=== PATIENT | male | born 1940 | race Caucasian/White ===

== ENCOUNTER 2016-08-15 20:29 | Observation (INO) | payer OTHER ==
[~2016-08-15] VITALS: Ht 152.4 cm; Wt 82.0 kg
[2016-08-15] MEDS ORDERED: CEFTRIAXONE 1 GM/50 ML (PMX) 50 ML IVPB STA (21:40)
[2016-08-15] MEDS ORDERED: ALBUTEROL 0.083% (NEB) 2.5 MG/3 ML AMP HHN STA (21:40)
[2016-08-15] MEDS ORDERED: AZITHROMYCIN 500MG/NS (PMX) 250 ML IV STA (21:40)
[2016-08-15] MEDS ORDERED: SODIUM CHLORIDE 0.9% 1L BAG IV* STA (21:40)
[2016-08-15 21:49] LABS: ADD SCAN DIFF NO
[2016-08-15 21:51] LABS: BASOPHILS % 0.2 % (0.0-2.0); HEMATOCRIT 41.5 % (42.0-52.0); HEMOGLOBIN 13.9 g/dl (14.0-18.0); LYMPHOCYTES % 6.9 % (15.0-51.0); MEAN CORPUSCULAR HEMOGLOBIN 30.7 pg (29.0-33.0); MEAN CORPUSCULAR HGB CONC 33.5 g/dl (32.0-37.0); MEAN CORPUSCULAR VOLUME 91.6 fl (82.0-101.0); MEAN PLATELET VOLUME 11.3 fl (7.4-10.4); MONOCYTE # 1.2 10^3/ul (0.3-0.9); MONOCYTES % 7.6 % (0.0-11.0); NEUTROPHIL # 12.7 10^3/ul (1.6-7.5); NEUTROPHILS % 84.2 % (39.0-77.0); PLATELET COUNT 207 10^3/UL (140-415); RED BLOOD COUNT 4.53 10^6/ul (4.70-6.10); RED CELL DISTRIBUTION WIDTH 13.4 % (11.5-14.5); WHITE BLOOD COUNT 15.1 10^3/ul (4.8-10.8)
[2016-08-15 21:55] LABS: INR 1.09; PROTIME 14.1 Sec (12.2-14.2); PT RATIO 1.1
[2016-08-15 21:56] LABS: PARTIAL THROMBOPLASTIN TIME 37.1 Sec (25.0-35.0)
[2016-08-15 21:58] LABS: ALBUMIN 3.8 g/dl (3.3-4.9); ALBUMIN/GLOBULIN RATIO 0.95; BILIRUBIN,INDIRECT 1.1 mg/dl (0-1.1); BILIRUBIN,TOTAL 1.1 mg/dl (0.2-1.3); CREATININE 1.01 mg/dl (0.61-1.24); POTASSIUM 4.1 mmol/L (3.5-5.1); TOTAL PROTEIN 7.8 g/dl (6.1-8.1)
[2016-08-15] MEDS ORDERED: IBUPROFEN 200 MG TAB PO ONE (22:00)
[2016-08-15 22:09] LABS: TROPONIN-I 0.075 ng/ml (0.00-0.12)
--- NOTE | 2016-08-15 22:31 | RADRPT ---
PROCEDURE: XR Chest. CLINICAL INDICATION: Sepsis. Cough. TECHNIQUE: Single frontal view. COMPARISON: None. FINDINGS: The lungs are clear. The heart size is normal. There is no pleural effusion. There is no pneumothorax. IMPRESSION: 1. Normal chest radiograph. RPTAT: QQ .Lucho Minaya MD, Date Time Electronically viewed and signed by .Lucho Minaya MD, on 08/15/2016 22:31 .R/
[2016-08-15] MEDS ORDERED: DEXAMETHASONE 10 MG/ML 1 ML INJ IV STA (22:35)
[2016-08-15] MEDS ORDERED: IPRATROPIUM (NEB) 0.5 MG/2.5 ML AMP NEB STA (22:35)
[2016-08-15] MEDS ORDERED: ALBUTEROL 0.083% (NEB) 2.5 MG/3 ML AMP NEB STA (22:35)
--- NOTE | 2016-08-15 23:16 | ERD ---
ER Documentation Chief Complaint Date/Time DATE: 08/15/16 TIME: 23:11 Chief Complaint fever/chest congestion x 1 week HPI 76-year-old male with a history of hyperlipidemia and hypertension presenting to the ER with 1 week of cough with yellow sputum. He has associated shortness of breath and chest discomfort when he coughs. For the past few days he has also had an associated fever. He denies any nausea, vomiting, abdominal pain, diarrhea. He has had intermittent associated headaches with dizziness. He has poor p.o. intake per his family. He also complains of urinary retention which is been going on for the past 2 years. ROS All systems reviewed and are negative except as per history of present illness. Medications Home Meds No Active Prescriptions or Reported Meds Allergies Allergies: Coded Allergies: No Known Allergy (Unverified , 08/15/16) PMhx/Soc Medical and Surgical Hx: pt denies Surgical Hx Hx Cardiac Disorders: Yes (Hypertension) Hx Miscellaneous Medical Probl: Yes (Hyperlipidemia) Hx Alcohol Use: No Hx Substance Use: No Hx Tobacco Use: No Smoking Status: Never smoker FmHx Family History: No diabetes Physical Exam Vitals Vital Signs Date Time Temp Pulse Resp B/P Pulse Ox O2 Delivery O2 Flow Rate FiO2 08/15/16 23:55 98.2 106 91 Room Air 08/15/16 22:52 97 2.0 28 08/15/16 22:50 107 20 97 Nasal Cannula 2.0 28 08/15/16 21:55 Nasal Cannula 2 08/15/16 21:54 92 22 98 Nasal Cannula 2.0 28 08/15/16 21:26 102.3 08/15/16 20:39 102.0 115 20 114/62 90 Physical Exam Const: Physically appearing, nontoxic, no distress Head: Atraumatic Eyes: Normal Conjunctiva ENT: Normal External Ears, Nose and Mouth. Neck: Full range of motion..~ No meningismus. Resp: Diminished breath sounds bilaterally with expiratory wheezing. No rales or rhonchi Cardio: Regular rate and rhythm, no murmurs. 2+ distal pulses, equal bilaterally Abd: Soft, non tender, non distended. Normal bowel sounds Skin: No petechiae or rashes Back: No midline or flank tenderness Ext: No cyanosis, or edema Neur: Awake and alert and oriented 3, cranial nerves intact, strength and sensation is intact in all 4 extremities Psych: Normal Mood and Affect Result Diagram: 08/15/16212108/15/162121 Results 24 hrs Laboratory Tests Test 08/15/16 21:22 08/15/16 23:40 08/16/16 00:01 08/16/16 00:09 White Blood Count 15.110^3/ul Red Blood Count 4.5310^6/ul Hemoglobin 13.9g/dl Hematocrit 41.5% Mean Corpuscular Volume 91.6fl Mean Corpuscular Hemoglobin 30.7pg Mean Corpuscular Hemoglobin Concent 33.5g/dl Red Cell Distribution Width 13.4% Platelet Count 45588^3/UL Mean Platelet Volume 11.3fl Neutrophils % 84.2% Lymphocytes % 6.9% Monocytes % 7.6% Eosinophils % 0.0% Basophils % 0.2% Nucleated Red Blood Cells % 0.0/100WBC Neutrophils # 12.710^3/ul Lymphocytes # 1.010^3/ul Monocytes # 1.210^3/ul Eosinophils # 0.010^3/ul Basophils # 0.010^3/ul Nucleated Red Blood Cells # 0.010^3/ul Prothrombin Time 14.1Sec Prothrombin Time Ratio 1.1 INR International Normalized Ratio 1.09 Activated Partial Thromboplast Time 37.1Sec Sodium Level 139mmol/L Potassium Level 4.1mmol/L Chloride Level 102mmol/L Carbon Dioxide Level 30mmol/L Anion Gap 11 Blood Urea Nitrogen 13mg/dl Creatinine 1.01mg/dl Glucose Level 138mg/dl Lactic Acid Level 1.4mmol/L 1.3mmol/L Calcium Level 9.0mg/dl Total Bilirubin 1.1mg/dl Direct Bilirubin 0.00mg/dl Indirect Bilirubin 1.1mg/dl Aspartate Amino Transf (AST/SGOT) 31IU/L Alanine Aminotransferase (ALT/SGPT) 36IU/L Alkaline Phosphatase 89IU/L Troponin I 0.075ng/ml Total Protein 7.8g/dl Albumin 3.8g/dl Globulin 4.00g/dl Albumin/Globulin Ratio 0.95 Urine Color YELLOW Urine Clarity CLEAR Urine pH 6.0 Urine Specific [place] >=1.030 Urine Ketones TRACE Urine Nitrite NEGATIVE Urine Bilirubin NEGATIVE Urine Urobilinogen 2.0 E.U./dL Urine Leukocyte Esterase NEGATIVE Urine Microscopic RBC 0-2/HPF Urine Microscopic WBC 0-2/HPF Urine Squamous Epithelial Cells FEW Urine Bacteria OCCASIONAL Urine Hemoglobin 1+ Urine Glucose NEGATIVE% Urine Total Protein 2+ Bedside Urine pH (LAB) 6.0 Bedside Urine Protein (LAB) 2+ Bedside Urine Glucose (UA) Negative Bedside Urine Ketones (LAB) Trace Bedside Urine Blood Trace-lysed Bedside Urine Nitrite (LAB) Negative Bedside Urine Leukocyte Esterase (L Negative Test 08/16/16 00:29 Blood Gas Specimen Source Blood arterial Arterial Blood Date Drawn 08/16/2016 12:30:48 AM Arterial Blood pH (Temp corrected) 7.377 Arterial Blood pCO2 (Temp correct) 40.3mmhg Arterial Blood pO2 (Temp corrected) 64.2mmHG Arterial Blood HCO3 23.1mmol/L Arterial Blood Base Excess -1.9mmol/L Arterial Blood Oxygen Saturation 91.3mmHG Carl Test ACCEPTAB Arterial Blood Gas Puncture Site Right Radial Arterial Blood Carboxyhemoglobin 0.6% Arterial Blood Methemoglobin 0.3% Blood Gas A-a O2 Differential 80.7mmHg Oxyhemoglobin Percent 90.5% Total Hemoglobin 12.6g/dl Blood Gas Temperature 37.0C Blood Gas Modality NASAL CANNULA FiO2 27.0% Blood Gas Notified Whom UP Blood Gas Notified Time 08/16/2016 12:47:44 AM Current Medications Medications (Trade) Dose Ordered Sig/Jama Route PRN Reason Start Time Stop Time Status Last Admin Dose Admin Sodium Chloride 2540 ml 2,540 ml BOLUS OVER 2 HOURS STAT IV* 08/15/16 21:40 08/15/16 21:42 DC 08/15/16 21:49 Ceftriaxone Sodium 50 ml @ 100 mls/hr ONCE STAT IVPB 08/15/16 21:40 08/15/16 22:09 DC 08/15/16 21:49 Azithromycin (Zithromax 500mg/ NS (Pmx)) 250 ml @ 250 mls/hr ONCE STAT IV 08/15/16 21:40 08/15/16 22:39 DC 08/15/16 22:11 Albuterol (Proventil 0.083% (Neb)) 5 mg ONCE STAT HHN 08/15/16 21:40 08/15/16 21:42 DC 08/15/16 21:53 Ibuprofen (Motrin) 400 mg ONCE ONCE PO 08/15/16 22:00 08/15/16 22:01 DC 08/15/16 22:11 Albuterol (Proventil 0.083% (Neb)) 5 mg ONCE STAT NEB 08/15/16 22:35 08/15/16 22:37 DC 08/15/16 22:46 Ipratropium [place] (Atrovent 0.02% (Neb)) 0.5 mg ONCE STAT NEB 08/15/16 22:35 08/15/16 22:37 DC 08/15/16 22:46 Dexamethasone (Decadron) 10 mg ONCE STAT IV 08/15/16 22:35 08/15/16 22:37 DC 08/15/16 23:10 Procedures/MDM EMERGENT LABS AND DIAGNOSTIC STUDIES: Lab Results above were reviewed and interpreted by me. CBC showed leukocytosis CMP is within normal limits Lactate within normal limits ABG shows hypoxemia 12-lead EKG was interpreted by Maco Clifton MD: Normal Sinus Rhythm with ventricular rate of 92 beats per minute Normal axis PVCs, normal intervals No acute ST or T wave changes suggestive of acute ischemia or STEMI. Radiology Results as interpreted by Radiology below were reviewed by Thelma Clifton MD: Chest x-ray shows no acute abnormalities Initial Nursing notes reviewed. Previous Medical Records requested via the Electronic Health Record. EMERGENCY DEPARTMENT COURSE / MEDICAL DECISION MAKING: Patient is presenting with cough, fever, with vitals notable for hypoxia on room air and tachycardia. Patient's symptoms are concerning for pneumonia versus bronchitis versus less likely CHF. I have a lower suspicion for pulmonary embolism or aortic dissection.multiple albuterol and Atrovent breathing treatments given with some improvement in symptoms, however patient continues to have wheezing. IV steroids were administered. Broad-spectrum antibiotics were given. There is no evidence of severe sepsis or septic shock. I suspect he has an acute bacterial bronchitis with bronchospasm. however given the patient's continued hypoxia on room air, I will admit him for observation and frequent breathing treatments as needed. Critical Care Time: 35 minutes Treatments/Evaluations: Close monitoring and treatment of unstable vital signs, cardiorespiratory, and neurologic status, while maintaining tight balance of fluid, respiratory, and cardiac interventions. This time includes discussing the case with the patient and the patients family. This time does not include all procedures stated elsewhere in this record. This time also includes reviewing old records, labs and radiological studies. This time includes examining and re-examining the patient. Additionally, this time also includes arranging care with admitting and consulting physicians. Departure Diagnosis: Primary Impression: Acute bronchitis with bronchospasm Condition: Serious GRICELDA CLIFTON MD August 15, 2016 23:16
[2016-08-15 23:55] VITALS: TEMP 98.2
[2016-08-16] VITALS (9 sets, daily range): BP systolic 120–141; BP diastolic 64–77; PULSE 73–94; RESP 17–21; Ht 152.4 cm; Wt 82.0 kg
[2016-08-16 00:08] LABS: URINE BLOOD (Dip) POC Trace-lysed (NEGATIVE)
[2016-08-16 00:47] LABS: AADO2 Arterial 80.7 mmHg (7.0-24.0); Allen Test ACCEPTAB; Arterial Base Excess -1.9 mmol/L (-3.0-3); Arterial COHb 0.6 % (0.0-3.0); Arterial Fraction of Oxyhgb 90.5 % (93.0-99.0); Arterial HCO3 23.1 mmol/L (22.0-26.0); Arterial MetHb 0.3 % (0.0-1.5); Arterial Total Hemglobin 12.6 g/dl (12.0-18.0); MODE NASAL CANNULA
[2016-08-16 00:49] LABS: ADD UMIC YES; URINE BILIRUBIN (Dip) NEGATIVE (NEGATIVE); URINE BLOOD (Dip) 1+ (NEGATIVE); URINE COLOR YELLOW (YELLOW); URINE GLUCOSE (Dip) NEGATIVE (NEGATIVE); URINE KETONES (Dip) TRACE (NEGATIVE); URINE LEUKOCYTE ESTERASE (Dip) NEGATIVE (NEGATIVE); URINE NITRITE (Dip) NEGATIVE (NEGATIVE); URINE TOTAL PROTEIN (Dip) 2+ (NEGATIVE); URINE UROBILINOGEN (Dip) 2.0 E.U./dL (0.1-1.0)
[2016-08-16 01:03] LABS: BACTERIA,URINE OCCASIONAL; URINE RBCS 0-2 /HPF (0)
[2016-08-16 01:04] LABS: SQUAMOUS EPITHELIAL CELL,UR FEW
[2016-08-16] MEDS ORDERED: ONDANSETRON 4 MG INJ IV PRN ×2 (01:30→04:30)
[2016-08-16] MEDS ORDERED: ACETAMINOPHEN 325 MG TAB PO PRN ×2 (01:30→04:30)
[2016-08-16] MEDS ORDERED: morphine 2 MG INJ IV PRN (04:30)
[2016-08-16] MEDS ORDERED: LEVOFLOXACIN 500MG/D5W (PMX) 100 ML IVPB SCH (05:00)
[2016-08-16] MEDS: ALBUTEROL/IPRATROPIUM (NEB) 3 ML AMP HHN SCH ×4 (06:03→15:58)
--- NOTE | 2016-08-16 07:54 | HP ---
DATE OF ADMISSION: 08/16/2016 TIME SEEN: 4 a.m. CHIEF COMPLAINT: Fever and cough. HISTORY OF PRESENT ILLNESS: The patient is a 76-year-old male with a history of hypertension and dy slipidemia who was brought with daughter from home complaining of cough, fever of 1 week duration. He also reported throat pain and lightheadedness. His cough for the most part is productive of yell ow sputum. Denied any chest pain, but he reported some shortness of breath. The patient came from [place] about 2 months ago. Denied sick contacts. When he presented to the ER, he was febrile with temperature of 102, tachycardic with a heart rate o f 115. He had a WBC of 15,000. Otherwise, the rest of his vitals were stable. Chest x-ray shows c lear lungs with no pleural effusion and normal sized heart. He was given antibiotics, IV fluids, an d Decadron while he was in the ER. REVIEW OF SYSTEMS: A 12 point review of systems was performed, negative except as mentioned in HPI. PAST MEDICAL HISTORY: As per HPI. SOCIAL HISTORY: Denies history of tobacco, alcohol, or illicit drug use. ALLERGIES: NO KNOWN DRUG ALLERGIES. HOME MEDICATIONS: He does not remember but he takes a medication for blood pressure and cholesterol . PHYSICAL EXAMINATION: VITAL SIGNS: Blood pressure 117/65, heart rate 85, respiratory rate 22, temperature 98.2, oxygen sa turation 93% on 2 liters. GENERAL: No acute distress. Sleepy but arousable. HEENT: Normocephalic, atraumatic. Pupils equally reactive to light. Extraocular muscles intact. CARDIOVASCULAR: Tachycardic with regular rhythm. LUNGS: Clear. ABDOMEN: Soft, nontender, nondistended. Positive bowel sounds. EXTREMITIES: No edema. LABORATORY DATA: WBC 15,000. Otherwise, CBC and CMP are within acceptable range. IMAGING: Chest x-ray unremarkable. IMPRESSION: 1. Sepsis, likely secondary to upper respiratory infection. 2. Hypertension, blood pressure within goal. 3. History of dyslipidemia. PLAN: I will continue the patient on antibiotic. Will send blood culture. Will check a urinalysis as well as urine culture. If the patient does not improve or if he continues to have throat pain w ill do a throat swab and send for culture. Will provide pain medication as needed. Further workup and management per clinical course. Dictated By: JORGE HSU/YUE Conf#: [id number] DID#: [id number]
[2016-08-16 08:38] LABS: ADD SCAN DIFF NO
[2016-08-16 08:50] LABS: ABNORMAL IP MESSAGE 1; BASOPHILS % 0.1 % (0.0-2.0); HEMATOCRIT 37.7 % (42.0-52.0); HEMOGLOBIN 11.9 g/dl (14.0-18.0); LYMPHOCYTES # 0.3 10^3/ul (0.8-2.9); LYMPHOCYTES % 3.1 % (15.0-51.0); MEAN CORPUSCULAR HGB CONC 31.6 g/dl (32.0-37.0); MEAN PLATELET VOLUME 11.6 fl (7.4-10.4); MONOCYTE # 0.2 10^3/ul (0.3-0.9); MONOCYTES % 1.7 % (0.0-11.0); NEUTROPHIL # 10.4 10^3/ul (1.6-7.5); NEUTROPHILS % 94.2 % (39.0-77.0); PLATELET COUNT 149 10^3/UL (140-415); RED BLOOD COUNT 3.97 10^6/ul (4.70-6.10); RED CELL DISTRIBUTION WIDTH 13.6 % (11.5-14.5); WHITE BLOOD COUNT 11.1 10^3/ul (4.8-10.8)
[2016-08-16 09:10] LABS: POTASSIUM 3.6 mmol/L (3.5-5.1)
[2016-08-16 09:12] LABS: ALBUMIN/GLOBULIN RATIO 0.81; BILIRUBIN,INDIRECT 0.4 mg/dl (0-1.1); BILIRUBIN,TOTAL 0.4 mg/dl (0.2-1.3); CREATININE 0.8 mg/dl (0.61-1.24); TOTAL PROTEIN 6.7 g/dl (6.1-8.1)
[2016-08-16 09:13] LABS: MAGNESIUM 1.7 mg/dl (1.7-2.5)
--- NOTE | 2016-08-16 15:14 | PN ---
Date/Time of Note Date/Time of Note DATE: 08/16/16 TIME: 15:12 Assessment/Plan VTE Prophylaxis VTE Prophylaxis Intervention: LMWH Assessment/Plan Chief Complaint/Hosp Course Subjective: Events noted. No distress. Objective: Vital signs stable Physical examination No pallor/JVD adenopathy Regular, no murmur rub gallop CTA B Bowel sounds positive, nontender, nondistended, no RR G No edema or Homans Assessment and plan 1) Acute hypoxic respiratory failure, stable continue oxygen 2) Sirs/suspected sepsis due to pneumonitis 3) Community-acquired pneumonia versus tracheobronchitis. Reviewed repeat chest x-ray post hydration 4) Hypertension 5) Anemia Problems: Exam/Review of Systems Vital Signs Vitals Vital Signs Date Time Temp Pulse Resp B/P Pulse Ox O2 Delivery O2 Flow Rate FiO2 08/16/16 13:08 94 20 95 21 08/16/16 11:59 98.2 141/77 08/16/16 01:22 Nasal Cannula 2.0 Intake and Output 08/15/16 08/15/16 08/16/16 15:00 23:00 07:00 Intake Total 100 ml Balance 100 ml Results Result Diagram: 08/16/16 0735 08/16/16 0730 Results 24 hrs Laboratory Tests Test 08/15/16 21:22 08/15/16 23:40 08/16/16 00:01 08/16/16 00:09 White Blood Count 15.1 H Red Blood Count 4.53 L Hemoglobin 13.9 L Hematocrit 41.5 L Mean Corpuscular Volume 91.6 Mean Corpuscular Hemoglobin 30.7 Mean Corpuscular Hemoglobin Concent 33.5 Red Cell Distribution Width 13.4 Platelet Count 207 Mean Platelet Volume 11.3 H Neutrophils % 84.2 H Lymphocytes % 6.9 L Monocytes % 7.6 Eosinophils % 0.0 Basophils % 0.2 Nucleated Red Blood Cells % 0.0 Neutrophils # 12.7 H Lymphocytes # 1.0 Monocytes # 1.2 H Eosinophils # 0.0 Basophils # 0.0 Nucleated Red Blood Cells # 0.0 Prothrombin Time 14.1 Prothrombin Time Ratio 1.1 INR International Normalized Ratio 1.09 Activated Partial Thromboplast Time 37.1 H Sodium Level 139 Potassium Level 4.1 Chloride Level 102 Carbon Dioxide Level 30 Anion Gap 11 Blood Urea Nitrogen 13 Creatinine 1.01 Glucose Level 138 Lactic Acid Level 1.4 1.3 Calcium Level 9.0 Total Bilirubin 1.1 Direct Bilirubin 0.00 Indirect Bilirubin 1.1 Aspartate Amino Transf (AST/SGOT) 31 Alanine Aminotransferase (ALT/SGPT) 36 Alkaline Phosphatase 89 Troponin I 0.075 Total Protein 7.8 Albumin 3.8 Globulin 4.00 H Albumin/Globulin Ratio 0.95 Urine Color YELLOW Urine Clarity CLEAR Urine pH 6.0 Urine Specific [place] >=1.030 H Urine Ketones TRACE Urine Nitrite NEGATIVE Urine Bilirubin NEGATIVE Urine Urobilinogen 2.0 E.U./dL H Urine Leukocyte Esterase NEGATIVE Urine Microscopic RBC 0-2 Urine Microscopic WBC 0-2 Urine Squamous Epithelial Cells FEW Urine Bacteria OCCASIONAL Urine Hemoglobin 1+ H Urine Glucose NEGATIVE Urine Total Protein 2+ H Bedside Urine pH (LAB) 6.0 Bedside Urine Protein (LAB) 2+ H Bedside Urine Glucose (UA) Negative Bedside Urine Ketones (LAB) Trace H Bedside Urine Blood Trace-lysed H Bedside Urine Nitrite (LAB) Negative Bedside Urine Leukocyte Esterase (L Negative Test 08/16/16 00:29 08/16/16 02:10 08/16/16 07:30 08/16/16 07:35 Blood Gas Specimen Source Blood arterial Arterial Blood Date Drawn 08/16/2016 12:30:48 AM Arterial Blood pH (Temp corrected) 7.377 Arterial Blood pCO2 (Temp correct) 40.3 Arterial Blood pO2 (Temp corrected) 64.2 L Arterial Blood HCO3 23.1 Arterial Blood Base Excess -1.9 Arterial Blood Oxygen Saturation 91.3 L Carl Test ACCEPTAB Arterial Blood Gas Puncture Site Right Radial Arterial Blood Carboxyhemoglobin 0.6 Arterial Blood Methemoglobin 0.3 Blood Gas A-a O2 Differential 80.7 H Oxyhemoglobin Percent 90.5 L Total Hemoglobin 12.6 Blood Gas Temperature 37.0 Blood Gas Modality NASAL CANNULA FiO2 27.0 Blood Gas Notified Whom UP Blood Gas Notified Time 08/16/2016 12:47:44 AM Lactic Acid Level 1.5 Sodium Level 144 Potassium Level 3.6 Chloride Level 105 Carbon Dioxide Level 25 Anion Gap 18 #H Blood Urea Nitrogen 14 Creatinine 0.80 Glucose Level 200 Calcium Level 8.0 L Magnesium Level 1.7 Total Bilirubin 0.4 Direct Bilirubin 0.00 Indirect Bilirubin 0.4 Aspartate Amino Transf (AST/SGOT) 24 Alanine Aminotransferase (ALT/SGPT) 30 Alkaline Phosphatase 73 Total Protein 6.7 # Albumin 3.0 L Globulin 3.70 H Albumin/Globulin Ratio 0.81 White Blood Count 11.1 #H Red Blood Count 3.97 L Hemoglobin 11.9 L Hematocrit 37.7 L Mean Corpuscular Volume 95.0 Mean Corpuscular Hemoglobin 30.0 Mean Corpuscular Hemoglobin Concent 31.6 L Red Cell Distribution Width 13.6 Platelet Count 149 # Mean Platelet Volume 11.6 H Neutrophils % 94.2 H Lymphocytes % 3.1 L Monocytes % 1.7 Eosinophils % 0.0 Basophils % 0.1 Nucleated Red Blood Cells % 0.0 Neutrophils # 10.4 H Lymphocytes # 0.3 L Monocytes # 0.2 L Eosinophils # 0.0 Basophils # 0.0 Nucleated Red Blood Cells # 0.0 Medications Medications Current Medications Levofloxacin/ Dextrose (Levaquin 500mg/ D5W 100 ml (Pmx)) 100 ml @ 100 mls/hr Q24H IVPB Last administered on 08/16/16t 06:19; Admin Dose 100 MLS/HR; Start at 05:00 Ondansetron HCl (Zofran Inj) 4 mg Q6H PRN IV NAUSEA AND/OR VOMITING; Start 02/22 at 04:30 Acetaminophen (Tylenol Tab) 650 mg Q4H PRN PO PAIN AND OR ELEVATED TEMP; Start 08/16/16 at 04:30 Morphine Sulfate (morphine) 2 mg Q4H PRN IV PAIN LEVEL 6-10; Start 08/16/16 at 04:30 MAIKOL TRAORE MD August 16, 2016 15:14
[2016-08-16] MEDS ORDERED: IBUPROFEN 600 MG TAB PO PRN (15:30)
[2016-08-16] MEDS ORDERED: MAGNESIUM SULFATE 2 GM/50 ML 50 ML IVPB ONE (16:00)
[2016-08-16] MEDS: GUAIFENESIN/CODEINE 5ML CUP PO PRN ×2 (17:38→22:51)
[2016-08-16] MEDS: ENOXAPARIN 40 MG/0.4 ML SYG SC SCH (17:38)
[2016-08-16] MEDS ORDERED: CEFTRIAXONE 2 GM INJ IVPB SCH (21:00)
[2016-08-16] MEDS ORDERED: CEFTRIAXONE 2 GM/50 ML (PMX) 50 ML IVPB SCH (21:00)
[2016-08-17] VITALS (13 sets, daily range): BP systolic 120–147; BP diastolic 55–74; PULSE 73–110; RESP 16–20
[2016-08-17] MEDS: ALBUTEROL/IPRATROPIUM (NEB) 3 ML AMP HHN SCH ×3 (00:11→16:54)
[2016-08-17] MEDS: LEVOFLOXACIN 750 MG TABLET PO SCH (06:44)
[2016-08-17 07:54] LABS: ADD SCAN DIFF NO
[2016-08-17 08:05] LABS: BASOPHILS % 0.1 % (0.0-2.0); HEMOGLOBIN 12.5 g/dl (14.0-18.0); LYMPHOCYTES # 0.7 10^3/ul (0.8-2.9); LYMPHOCYTES % 4.3 % (15.0-51.0); MEAN CORPUSCULAR HEMOGLOBIN 30.7 pg (29.0-33.0); MEAN CORPUSCULAR HGB CONC 32.9 g/dl (32.0-37.0); MEAN CORPUSCULAR VOLUME 93.4 fl (82.0-101.0); MEAN PLATELET VOLUME 11.9 fl (7.4-10.4); MONOCYTES % 5.9 % (0.0-11.0); NEUTROPHIL # 15.1 10^3/ul (1.6-7.5); NEUTROPHILS % 88.3 % (39.0-77.0); PLATELET COUNT 203 10^3/UL (140-415); RED BLOOD COUNT 4.07 10^6/ul (4.70-6.10); RED CELL DISTRIBUTION WIDTH 13.6 % (11.5-14.5)
[2016-08-17 08:31] LABS: CALCIUM 8.9 mg/dl (8.4-10.2); CREATININE 0.92 mg/dl (0.61-1.24); MAGNESIUM 2.4 mg/dl (1.7-2.5); PHOSPHORUS 3.8 mg/dl (2.5-4.9); POTASSIUM 4.1 mmol/L (3.5-5.1)
[2016-08-17] MEDS: FAMOTIDINE 20 MG TAB PO SCH (08:40)
[2016-08-17] MEDS: ENOXAPARIN 40 MG/0.4 ML SYG SC SCH (08:40)
[2016-08-17 08:44] LABS: TROPONIN-I 0.024 ng/ml (0.00-0.12)
[2016-08-17 09:02] LABS: THYROID STIMULATING HORMONE 0.95 MIU/L (0.465-4.680)
[2016-08-17] MEDS: GUAIFENESIN/CODEINE 5ML CUP PO PRN (11:31)
[2016-08-17] MEDS ORDERED: ALBUTEROL 18 GM INHALER INH PRN (17:30)
--- NOTE | 2016-08-17 17:32 | PDOCDIS ---
Discharge Instructions DIAGNOSIS Discharge Diagnosis: bronchitis CONDITION Patient Condition: Good HOME CARE INSTRUCTIONS: Diet Instructions: Low Fat /CholesterolSpecial Diet: low salt ACTIVITY: Activity Restrictions: Slowly Increase Activity FOLLOW UP/APPOINTMENTS Appointments pcp 1week MAIKOL TRAORE MD August 17, 2016 17:32
[2016-08-17] MEDS ORDERED: UDROBAC PO (17:34)
[2016-08-17] MEDS ORDERED: ALBU18HF INH (17:34)
--- NOTE | 2016-08-17 17:42 | PN ---
Date/Time of Note Date/Time of Note DATE: 08/17/16 TIME: 17:40 Assessment/Plan VTE Prophylaxis VTE Prophylaxis Intervention: LMWH Lines/Catheters IV C[facility]ter Type (from [facility]): Saline Lock Assessment/Plan Chief Complaint/Hosp Course S: Events noted. No distress. O:Vss PE No pallor/JVD adenopathy Reg, no m/r/g CTAB Bs + nt nd no R/R/G No edema or Homans A/P 1) Acute hypoxic respiratory failure, stable/improved continue therapy for pneumonitis. Edema check echo. Troponin negative. 2) Sirs/suspected sepsis due to pneumonitis 3) Community-acquired pneumonia vs tracheobronchitis. Reviewed repeat chest x- ray post hydration 4) Hypertension 5) Anemia 6) PVCs. Review echo, dc scheduled albuterol Problems: Exam/Review of Systems Vital Signs Vitals Vital Signs Date Time Temp Pulse Resp B/P Pulse Ox O2 Delivery O2 Flow Rate FiO2 08/17/16 16:54 67 18 97 21 08/17/16 16:07 97.6 128/72 08/16/16 01:22 Nasal Cannula 2.0 Intake and Output 08/16/16 08/16/16 08/17/16 14:59 22:59 06:59 Intake Total 980 ml 300 ml Balance 980 ml 300 ml Results Result Diagram: 08/17/1614 08/17/16713 Results 24 hrs Laboratory Tests Test 08/17/16 07:14 White Blood Count 17.0 #H Red Blood Count 4.07 L Hemoglobin 12.5 L Hematocrit 38.0 L Mean Corpuscular Volume 93.4 Mean Corpuscular Hemoglobin 30.7 Mean Corpuscular Hemoglobin Concent 32.9 Red Cell Distribution Width 13.6 Platelet Count 203 # Mean Platelet Volume 11.9 H Neutrophils % 88.3 H Lymphocytes % 4.3 L Monocytes % 5.9 Eosinophils % 0.0 Basophils % 0.1 Nucleated Red Blood Cells % 0.0 Neutrophils # 15.1 H Lymphocytes # 0.7 L Monocytes # 1.0 H Eosinophils # 0.0 Basophils # 0.0 Nucleated Red Blood Cells # 0.0 Sodium Level 145 H Potassium Level 4.1 Chloride Level 111 H Carbon Dioxide Level 26 Anion Gap 12 Blood Urea Nitrogen 24 H Creatinine 0.92 Glucose Level 135 # Hemoglobin A1c 5.5 Calcium Level 8.9 Phosphorus Level 3.8 Magnesium Level 2.4 Troponin I 0.024 Thyroid Stimulating Hormone (TSH) 0.950 Medications Medications Current Medications Ondansetron HCl (Zofran Inj) 4 mg Q6H PRN IV NAUSEA AND/OR VOMITING; Start 02/22 at 04:30 Acetaminophen (Tylenol Tab) 650 mg Q4H PRN PO PAIN AND OR ELEVATED TEMP; Start 08/16/16 at 04:30 Morphine Sulfate (morphine) 2 mg Q4H PRN IV PAIN LEVEL 6-10; Start 08/16/16 at 04:30 Levofloxacin (Levaquin) 750 mg DAILY@06 PO Last administered on 08/17/16 06:44 ; Admin Dose 750 MG; Start 08/17/16 at 06:00 Guaifenesin/ Codeine Phosphate (Robitussin Ac Liquid Cup) 10 ml Q4H PRN PO COUGH Last administered on 08/17/16 11:31; Admin Dose 10 ML; Start 08/16/16 at 15:30 Famotidine (Pepcid) 20 mg DAILY PO Last administered on 08/17/16 08:40; Admin Dose 20 MG; Start 08/17/16 at 09:00 Enoxaparin Sodium (Lovenox) 40 mg DAILY SC Last administered on 08/17/16 08:40 ; Admin Dose 40 MG; Start 08/16/16 at 16:00 Ibuprofen (Motrin) 600 mg Q6H PRN PO MODERATE PAIN LEVEL 4-6; Start 08/16/16 at 15:30 MAIKOL TRAORE MD August 17, 2016 17:42
--- NOTE | 2016-08-17 18:18 | RADRPT ---
Vent Rate: 88 bpm RR Interval: 0 msec AR Interval: 164 msec QRS Duration: 92 msec QT Interval: 398 msec QTC Interval: 481 msec P-R-T [place]: 62 - 64 - 79 degrees Sinus rhythm with frequent premature ventricular complexes in a pattern of bigeminy Prolonged QT Abnormal ECG Electronically Signed By: Preston Cartwright [id number]
--- NOTE | 2016-08-17 19:03 | DS ---
DATE OF ADMISSION: 08/16/2016 DATE OF DISCHARGE: 08/17/2016 PRIMARY CARE PHYSICIAN: Unknown. GREETER: None. DIAGNOSIS ON ADMISSION: Sepsis. DIAGNOSES ON DISCHARGE: 1. Sepsis. 2. Pneumonitis. 3. Hypertension. 4. Dyslipidemia. 5. Anemia. 6. Prediabetes. HOSPITAL COURSE: This is a 76-year-old gentleman admitted with fever, cough, concerning for sepsis. White count of 15. Urine essentially unremarkable. Initial chest x-ray negative. The patient se emed to be improving with conservative measures. He is tolerating diet, ambulating, stable and fit for discharge. His white count does remain elevated. Fever has resolved. Potentially, there is so me sort of viral process as well. His temperature was 102.3 on admission. Today, it is 97. He is on empiric Rocephin and Levaquin. Will go home on Levaquin. CMP essentially unremarkable. TSH of 0.9, normal. A1c is 5.5. Troponin negative. Lactic acid negative. INR 1. Urine unremarkable. White count still high at 7, hemoglobin 12 and hematocrit 38, platelets 203. Urine and blood cultur es unremarkable. Influenza negative. Repeat chest x-ray pending. I am interested to see if a pneu amanda process has developed in the interim on imaging studies. DISCHARGE PLAN: Home. Follow up with Primary in 1 week. DIET: Low salt and cholesterol. ACTIVITY: As tolerated. No driving if dizzy. DURABLE MEDICAL EQUIPMENT: None. CODE STATUS: FULL. CONDITION: BARRIERS TO DISCHARGE: None. PENDING TESTS: None. FUNCTIONAL STATUS: The patient is awake, alert, and agrees to the plan of care. REASON FOR ADMISSION: Fever. ALLERGIES: NONE: STOPPED MEDICATIONS: None. CONTINUED MEDICATIONS: None. ALTERED MEDICATIONS: None. NEW MEDICATIONS: 1. Levaquin 500 daily. 2. Robitussin as needed. 3. Albuterol MDI 2 puffs every 6 hours as needed. Dictated By: MAIKOL PALMA/NTS Conf#: [id number] DID#: [id number]
--- NOTE | 2016-08-17 19:51 | RADRPT ---
PROCEDURE: XR Chest. CLINICAL INDICATION: Cough. TECHNIQUE: Portable AP semi erect view of the chest was obtained. COMPARISON: 08/15/2016 FINDINGS: The cardiomediastinal silhouette is within upper normal limits. Left lower lobe and lingular subseg mental atelectasis is now identified. The right lung is clear. There is no evidence for pleural ef fusion, pneumothorax or pulmonary vascular congestion. The osseous structures are intact with no ev idence for acute abnormality. RPTAT:HJJR IMPRESSION: 1. Left lower lobe and lingular subsegmental atelectasis not evident previously. 2. Top normal cardiac silhouette size likely from suboptimal inspiratory response and low lung volu mes. Physician Ana Date Time Electronically viewed and signed by Star Ricks Physician on 08/17/2016 19:51 JR/
[2016-08-18] VITALS (10 sets, daily range): BP systolic 131–159; BP diastolic 72–92; PULSE 68–99; RESP 16–18
[2016-08-18] MEDS: LEVOFLOXACIN 750 MG TABLET PO SCH (06:17)
[2016-08-18 08:04] LABS: ADD SCAN DIFF NO
[2016-08-18 08:09] LABS: BASOPHILS % 0.2 % (0.0-2.0); EOSINOPHILS # 0.1 10^3/ul (0.0-0.5); EOSINOPHILS % 0.6 % (0.0-7.0); HEMATOCRIT 39.5 % (42.0-52.0); HEMOGLOBIN 12.8 g/dl (14.0-18.0); LYMPHOCYTES # 1.2 10^3/ul (0.8-2.9); MEAN CORPUSCULAR HEMOGLOBIN 30.3 pg (29.0-33.0); MEAN CORPUSCULAR HGB CONC 32.4 g/dl (32.0-37.0); MEAN CORPUSCULAR VOLUME 93.4 fl (82.0-101.0); MEAN PLATELET VOLUME 11.4 fl (7.4-10.4); MONOCYTE # 0.8 10^3/ul (0.3-0.9); MONOCYTES % 8.2 % (0.0-11.0); NEUTROPHIL # 7.8 10^3/ul (1.6-7.5); NEUTROPHILS % 78.5 % (39.0-77.0); PLATELET COUNT 228 10^3/UL (140-415); RED BLOOD COUNT 4.23 10^6/ul (4.70-6.10)
[2016-08-18 08:44] LABS: CREATININE 0.91 mg/dl (0.61-1.24); MAGNESIUM 2.2 mg/dl (1.7-2.5); PHOSPHORUS 4.2 mg/dl (2.5-4.9); POTASSIUM 3.8 mmol/L (3.5-5.1)
[2016-08-18] MEDS ORDERED: FUROSEMIDE 40 MG TAB PO ONE (09:00)
[2016-08-18] MEDS: FAMOTIDINE 20 MG TAB PO SCH (09:42)
[2016-08-18] MEDS: GUAIFENESIN/CODEINE 5ML CUP PO PRN (09:42)
[2016-08-18] MEDS: ENOXAPARIN 40 MG/0.4 ML SYG SC SCH (09:48)
--- NOTE | 2016-08-18 11:11 | RADRPT ---
PROCEDURE: US bilateral lower extremity venous Doppler. CLINICAL INDICATION: Bilateral lower extremity pain and swelling. TECHNIQUE: Multiple longitudinal and transverse images of the bilateral lower extremity veins were obtained with bull scale and color Doppler imaging. 2D grayscale measurements with compression, co skyla Doppler flow, and augmentation was performed. The calf veins were interrogated as well. COMPARISON: No prior studies are available for comparison. FINDINGS: The bilateral common femoral, superficial femoral and popliteal veins are normally compressible thro ughout. Color flow demonstrates normal filling of the vessel. Normal waveforms are visualized and there is normal response to augmentation. The calf veins are visualized and are equally unremarkabl e. IMPRESSION: 1. No evidence of a deep vein thrombosis involving either lower extremity. RPTAT: QQ .Maik Jain MD, Date Time Electronically viewed and signed by .Maik Jain MD, on 08/18/2016 11:11 .R/
[2016-08-18] MEDS ORDERED: LISINOPRIL 5 MG TAB PO SCH (17:00)
[2016-08-18] MEDS ORDERED: FURO40TA4 PO (17:38)
[2016-08-18] MEDS ORDERED: LISI-313 PO (17:38)
--- NOTE | 2016-08-19 04:44 | DS ---
DATE OF ADMISSION: 08/16/2016 DATE OF DISCHARGE: 08/18/2016 ADDENDUM: HOSPITAL COURSE: The patient was kept in the hospital. Blood pressure reevaluated. Will need to g o home on a new medication. I spoke with him and his family. Apparently he was taking blood pressu re medicines p.r.n. at some point. Due to his edema and his shortness of breath with blood pressur e elevation, I will start the patient on lisinopril as well. IMAGING STUDIES: Ultrasound did not show any DVT. A 2D echo done had not been read. Preliminary n o acute process. PENDING TESTS: 2D echo at . NEW MEDICATIONS: Lisinopril 5 mg daily. LABORATORY DATA: White cell count now normal at 10. Blood and urine negative. Influenza negative. Dictated By: MAIKOL PALMA/NTS Conf#: [id number] DID#: [id number]
--- NOTE | 2016-08-23 14:28 | RADRPT ---
Echocardiogram Report Patient Name: MARILY SCHWAB Gender: Male Date: 1940 Study Date: 18-Aug-2016 Auto Wash Buffer: JAKE Location: I Ref. Physician: MAIKOL RTAORE Quality: Adequate Procedures: Transthoracic echocardiogram with complete 2D, M-Mode, and Doppler examination. Indications: Abnormal EKG. Edema. 2D/M Mode Doppler Measurement Value Normal Ranges Measurement Value Normal Ranges AoR Diam MM 3.5 cm AV Peak Mihir 1.2 m/sec LVIDd 2D 5.2 3.5 - 5.6 cm AV Peak PG 5.9 mmHg LVIDs 2D 4.4 2.1 - 4.1 cm LVOT Peak Mihir 0.7 m/sec LVPWd 2D 0.9 0.6 - 1.1 cm LVOT Peak PG 1.9 mmHg IVSd 2D 1.2 0.6 - 1.1 cm TR Peak Mihir 2.4 m/sec EDV 2D 132.0 cm3 TR Peak PG 23.9 mmHg ESV 2D 85.3 cm3 PV Peak Mihir 1.1 m/sec LA Dimen 2D 4.8 2.3 - 4.0 cm PV Peak PG 5.0 mmHg RVSP 26.9 mmHg Findings Left Ventricle: Lower limits of normal systolic function. Normal left ventricular cavity size. Mild hypertrophy of the basal septum. Mild left ventricular systolic dysfunction. Ejection fraction is visually estimated at 50 %. Abnormal Diastolic Function. These segments of the LV are hypokinetic inferoseptum basal segment and inferior base segment. Right Ventricle: Normal right ventricular size. Normal right ventricular systolic function. Left Atrium: There is moderate enlargement of left atrium. LA Dimension4.80 cm. Right Atrium: The right atrium is normal in size. Mitral Valve: Normal appearance of the mitral valve. Mild mitral valve regurgitation. Aortic Valve: No hemodynamically significant aortic stenosis by doppler. Aortic cusps appear mildly calcified. Mild aortic valve regurgitation. Tricuspid Valve: Normal appearance of the tricuspid valve. Estimated peak PA systolic pressure 27 mmHg. There is mild tricuspid regurgitation. Pulmonic Valve: Normal pulmonic valve appearance. There is trace pulmonic regurgitation. Pericardium: Normal pericardium with no significant pericardial effusion. Aorta: Normal aortic root. IVC: Normal size and normal respiratory collapse consistent with normal right atrial pressure. Pulmonary Artery: Normal pulmonary artery size. Conclusions Lower limits of normal systolic function. Normal left ventricular cavity size. Mild hypertrophy of the basal septum. Mild left ventricular systolic dysfunction. Ejection fraction is visually estimated at 50 %. Abnormal Diastolic Function. These segments of the LV are hypokinetic inferoseptum basal segment and inferior base segment. Normal right ventricular size. Normal right ventricular systolic function. There is moderate enlargement of left atrium. The right atrium is normal in size. Mild mitral valve regurgitation. No hemodynamically significant aortic stenosis by doppler. Mild aortic valve regurgitation. Estimated peak PA systolic pressure 27 mmHg. There is mild tricuspid regurgitation. Normal pericardium with no significant pericardial effusion. Electronically Signed By: Joe Lee 23-Aug-2016 14:28:11 -0700 Patient Name: MARILY SCHWAB Study Date: 18-Aug-2016 [id number]
== END 2016-08-18 19:11 | disposition home or self-care (01) ==
LOC: E/R 20:29 → MS4 08-16 01:08
PROVIDERS: ADMIT Internal Medicine; ATTEND Internal Medicine
DX: A41.9 Sepsis, unspecified organism (principal); J18.9 Pneumonia, unspecified organism; I10 Essential (primary) hypertension; E78.5 Hyperlipidemia, unspecified; D64.9 Anemia, unspecified; R73.03 Prediabetes
CPT/HCPCS: 36415; 36600; 71010; 80048; 80053; 81001; 82306; 82803; 83036; 83605; 83735; 84100; 84443; 84484; 85025; 85610; 85651; 85730; 86140; 87040; 87086; 87400; 93005; 93306; 93970; 94640; 94664; 96372; 96374; 96375; 99291; G0378; J0456; J0696; J1100; J1650; J1956; J3475; J7030; 81003

== ENCOUNTER 2018-08-13 05:30 | Emergency (ER) | payer OTHER ==
[~2018-08-13] VITALS: Wt 85.8 kg
[~2018-08-13 05:30] MED LIST: ALBU18HF INH; CODE5LIQ2 PO; FURO40TA4 PO; LISI-313 PO
[2018-08-13 05:32] VITALS: BP 189/82; PULSE 92; RESP 18
[2018-08-13] MEDS ORDERED: PROM6.2515 PO (07:39)
[2018-08-13] MEDS ORDERED: BENZ-6 PO (07:39)
[2018-08-13] MEDS ORDERED: FURO-110 PO (07:39)
[2018-08-13] MEDS ORDERED: FUROSEMIDE 20 MG TAB PO ONE (08:00)
--- NOTE | 2018-08-13 10:39 | ERD ---
ER Documentation Chief Complaint Chief Complaint COUGH, CHILLS, BODY ACHES X'S 3 DAYS HPI 78-year-old male presenting with cough and body aches with chills. Patient states he has had a productive cough for the last week. He noted some lower leg swelling for the last week. Denies any fevers. Has a mild runny nose and sore throat. Has not taken medications for symptoms. No sick contacts. Medical history is hypertension. NKDA. Surgical history knee surgery. Social history denies ROS All systems reviewed and are negative except as per history of present illness. Medications Home Meds Active Scripts Promethazine Hcl* (Promethazine Hcl* Syrup) 6.25 Mg/5 Ml Syrup, 6.25 MG PO Q6H PRN for COUGH, #100 ML Prov:PA MARTINS PA-C 08/13/18 Benzonatate* (Tessalon Perle*) 100 Mg Capsule, 100 MG PO Q8H PRN for COUGH, #30 CAP Prov:PA MARTINS PA-C 08/13/18 Furosemide* (Lasix*) 20 Mg Tablet, 20 MG PO DAILY for 5 Days, #5 TAB Prov:PA MARTINS PA-C 08/13/18 Furosemide* (Furosemide*) 40 Mg Tablet, 40 MG PO DAILY for 3 Days, #3 TAB Prov:MAIKOL TRAORE MD 08/18/16 Lisinopril* (Lisinopril*) 5 Mg Tablet, 5 MG PO DAILY for 14 Days, #14 TAB Prov:MAIKOL TRAORE MD 08/18/16 Guaifenesin-Codeine Phosphate* (Robitussin* AC) 5 Ml Syrup, 10 ML PO Q4H PRN for COUGH for 7 Days, #1 Prov:MAIKOL TRAORE MD 08/17/16 Albuterol Sulfate* (Ventolin HFA*) 18 Gm Hfa.aer.ad, 2 PUFF INH Q4H RESP THERAPY PRN for SHORTNESS OF BREATH for 10 Days, #1 0 Refills Prov:MAIKOL TRAORE MD 08/17/16 Allergies Allergies: Coded Allergies: No Known Allergy (Unverified , 08/15/16) PMhx/Soc History of Surgery: No Anesthesia Reaction: No Hx Neurological Disorder: No Hx Respiratory Disorders: No Hx Cardiac Disorders: Yes (HTN, HLD) Hx Psychiatric Problems: No Hx Miscellaneous Medical Probl: No Hx Alcohol Use: No Hx Substance Use: No Hx Tobacco Use: No Smoking Status: Never smoker FmHx Family History: No diabetes, No coronary disease, No other Physical Exam Vitals Vital Signs Date Temp Pulse Resp B/P (MAP) Pulse Ox O2 O2 Flow FiO2 Time Delivery Rate 08/13/18 99.0 92 18 189/82 94 05:32 (117) Physical Exam GENERAL: The patient is well-appearing, well-nourished, in no acute distress HEENT: Atraumatic. Conjunctivae are pink. Pupils equal, round, and reactive to light. There is no scleral icterus. Tympanic membranes clear bilaterally. Oropharynx clear. CHEST: Clear to auscultation bilaterally. There are no rales, wheezes or rhonchi. HEART: Regular rate and rhythm. No murmurs, clicks, rubs or gallops. EXTREMITIES: Mild pitting edema noted to bilateral legs. No calf tenderness. NEUROLOGIC: Alert and oriented. Cranial nerves II through XII intact. Motor strength in all 4 extremities with 5 out of 5 strength. Sensation grossly intact. Normal speech and gait. Result Diagram: 08/13/18 0637 Results 24 hrs Laboratory Tests Test 08/13/18 06:37 White Blood Count 9.3 10^3/ul Red Blood Count 4.75 10^6/ul Hemoglobin 14.3 g/dl Hematocrit 45.2 % Mean Corpuscular Volume 95.2 fl Mean Corpuscular Hemoglobin 30.1 pg Mean Corpuscular Hemoglobin Concent 31.6 g/dl Red Cell Distribution Width 13.5 % Platelet Count 232 10^3/UL Mean Platelet Volume 10.0 fl Immature Granulocytes % 0.200 % Neutrophils % 73.0 % Lymphocytes % 12.4 % Monocytes % 10.2 % Eosinophils % 3.7 % Basophils % 0.5 % Nucleated Red Blood Cells % 0.0 /100WBC Immature Granulocytes # 0.020 10^3/ul Neutrophils # 6.8 10^3/ul Lymphocytes # 1.2 10^3/ul Monocytes # 1.0 10^3/ul Eosinophils # 0.4 10^3/ul Basophils # 0.1 10^3/ul Nucleated Red Blood Cells # 0.0 10^3/ul Troponin I 0.068 ng/ml B-Type Natriuretic Peptide 859 PG/ML Current Medications Medications Dose Sig/Jama Start Time Status Last (Trade) Ordered Route PRN Stop Time Admin Dose Reason Admin Furosemide 20 mg ONCE ONCE 08/13/18 DC 08/13/18 (Lasix) PO 08:00 08/13/18 07:45 08:00 Procedures/MDM DIAGNOSTIC IMAGING REPORT Patient: MARILY SCHWAB : 1940 Age: 78 Sex: M MR #: [id number] DOS: 08/13/18 0613 Ordering MD: MINA MARTINS PA-C Location: [facility] Room/Bed: PROCEDURE: XR Chest. CLINICAL INDICATION: Chest pain TECHNIQUE: Single portable view of the chest was obtained COMPARISON: None FINDINGS: The heart is enlarged. There are mild left lower lobe linear atelectatic changes. There is no pleural effusion or pneumothorax. RPTAT: AA IMPRESSION: Mild Cardiomegaly. Mild left lower lobe linear atelectatic changes. ER Course: 20mg Lasix given in ED. BNP: 849. EKG: Rate/Rhythm: 82 bpm Normal Sinus Rhythm QRS, ST, T-waves: No changes consistent w/ acute ischemia Impression: No evidence of ischemia or arrhythmia MDM: 78-year-old male presenting with lower leg swelling and cough. Patient had some mild pitting edema and had elevated BNP. Patient did not have crackles on auscultation. He will be treated with a short course of Lasix and close follow- up with his PMD. I have low suspicion for cardiac emergency at this time. Patient has early onset of CHF but will be followed closely with primary doctor. Patient did not have respiratory distress and stable oxygen levels with no concerning findings on EKG or troponin. Patient is stable for outpatient management. I discussed this extensively with daughter. Dr. Zhang also evaluated patient at bedside. Patient is discharged with strict ER precautions and supportive medications. Patient also has findings consistent with URI which could be exacerbating and causing continued cough. Patient will be discharged with supportive medications for his URI. Patient is told symptoms change or worsen to return immediately to the ER. All questions answered at discharge Departure Diagnosis: Primary Impression: CHF (congestive heart failure) Additional Impression: Upper respiratory infection Condition: Stable Patient Instructions: Preventing Common Respiratory Infections, Heart Failure, General Referrals: [facility] YOU HAVE RECEIVED A MEDICAL SCREENING EXAM AND THE RESULTS INDICATE THAT YOU DO NOT HAVE A CONDITION THAT REQUIRES URGENT TREATMENT IN THE EMERGENCY DEPARTMENT. FURTHER EVALUATION AND TREATMENT OF YOUR CONDITION CAN WAIT UNTIL YOU ARE SEEN IN YOUR DOCTORS OFFICE WITHIN THE NEXT 1-2 DAYS. IT IS YOUR RESPONSIBILITY TO MAKE AN APPOINTMENT FOR FOLOW-UP CARE. IF YOU HAVE A PRIMARY DOCTOR --you should call your primary doctor and schedule an appointment IF YOU DO NOT HAVE A PRIMARY DOCTOR YOU CAN CALL OUR PHYSICIAN REFERRAL HOTLINE AT IF YOU CAN NOT AFFORD TO SEE A PHYSICIAN YOU CAN CHOSE FROM THE FOLLOWING [facility] [address] [facility] [address] [facility] [address] [facility] [address] [facility]. [facility] [address] [facility]. [facility] [address] Additional Instructions: FOLLOW UP WITH YOUR PRIMARY CARE PHYSICIAN TOMORROW.Return to this facility if you are not improving as expected. PA MARTINS PA-C August 13, 2018 10:39
== END 2018-08-13 07:52 | disposition home or self-care (01) ==
LOC: FTE 05:30
DX: I11.0 Hypertensive heart disease with heart failure (principal); I50.9 Heart failure, unspecified; J06.9 Acute upper respiratory infection, unspecified
CPT/HCPCS: 71045; 83880; 84484; 85025; 93005